=== PATIENT | female | born 1940 | race Caucasian/White ===

== ENCOUNTER 2016-12-02 13:37 | Outpatient (CLI) | payer OTHER, MEDICARE ==
--- NOTE | 2016-12-02 14:39 | DIAGNOSTIC IMAGING REPORT ---
PROCEDURE: XR HAND 3 OR 4 VIEWS BILATERAL INDICATION: ARTHRITIS, HANDS, BILATERAL TECHNIQUE: Four views of each hand. COMPARISON: None. FINDINGS: RIGHT HAND: Mild degenerative changes of the DIP joints. No periarticular osteopenia. No fracture or dislocation. Soft tissues are unremarkable. LEFT HAND: Mild degenerative changes of the DIP joints. No periarticular osteopenia, fracture or dislocation. Soft tissues are unremarkable. IMPRESSION: 1. 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
== END 2016-12-02 23:00 | disposition home or self-care (01) ==
LOC: XR SRH 13:37
DX: M19.042 Primary osteoarthritis, left hand (principal); M19.041 Primary osteoarthritis, right hand